=== PATIENT | female | born 1975 | race Caucasian/White ===

== ENCOUNTER 2016-10-14 16:22 | Emergency (ER) | payer BC ==
[~2016-10-14] VITALS: Ht 157.5 cm; Wt 49.9 kg
[2016-10-14 16:37] VITALS: BP_SYST 124
--- NOTE | 2016-10-14 16:49 | NUR ---
Patient to ER bed 7 to gown for evaluation. Side rails up. Report given to Antonella WHITTEN.
--- NOTE | 2016-10-14 16:52 | NUR ---
Patient was brought in by . Patient is A& O x 4. Patient reports that she has been having dizziness after waking at 2 am this morning with nausea but denies any vomiting. Denies photophobia. Patient presents with nice pack on head in wheelchair. Denies any pain but reports "spinning". No other complaints/injuries per patient or as noted. Will continue monitor.
--- NOTE | 2016-10-14 16:59 | NUR ---
Dr. Roman at bedside.
[2016-10-14] MEDS ORDERED: PROMETHAZINE HCL 25 MG/ML AMP IVP ONE (17:00)
[2016-10-14] MEDS ORDERED: NACL 0.9% 1,000 ML IV ONE (17:15)
[2016-10-14 17:20] LABS: BASOPHILS % (AUTO) 0.3 % (0.0-2.0); EOSINOPHILS % (AUTO) 0.1 % (0.0-4.0); HEMATOCRIT 41.5 % (36-48); LYMPHOCYTES # (AUTO) 1.5 K/uL (1.0-5.5); LYMPHOCYTES % (AUTO) 16.4 % (20.5-51.5); MEAN CORPUSCULAR HEMOGLOBIN 31 pg (27-31); MEAN CORPUSCULAR HGB CONC 34 % (32-36); MEAN CORPUSCULAR VOLUME 93 fL (79.0-98.0); MONOCYTES # (AUTO) 0.4 K/uL (0.0-1.0); MONOCYTES % (AUTO) 4.9 % (1.7-9.3); NEUTROPHILS # (AUTO) 7.1 K/uL (1.8-7.7); NEUTROPHILS % (AUTO) 78.3 % (40.0-70.0); PLATELET COUNT (AUTO) 329 K/uL (130-430); RED BLOOD CELL COUNT(AUTO) 4.48 MIL/uL (4.2-6.2); RED CELL DISTRIBUTION WIDTH 11.5 % (9.0-15.0)
--- NOTE | 2016-10-14 17:31 | NUR ---
Phenergan 12.5 mg administered. Medication did not scan. Patient's Name and Date of verified as well as allergies. Patient tolerated well.
[2016-10-14 17:36] LABS: CALCIUM 9.4 mg/dL (8.4-11.0); CREATININE 0.7 mg/dL (0.55-1.30); POTASSIUM 3.6 mmol/L (3.5-5.1)
[2016-10-14 17:41] LABS: ALBUMIN 4.8 g/dL (3.4-4.8); TOTAL BILIRUBIN 0.7 mg/dL (0.0-1.0); TOTAL PROTEIN, SERUM 8.3 g/dL (6.4-8.3)
[2016-10-14] MEDS ORDERED: MECLIZINE HCL 25 MG TABLET (ANITVERT) PO ONE (18:45)
--- NOTE | 2016-10-14 18:54 | NUR ---
Patient resting quietly. No acute distress noted. Vital signs within normal range.
[2016-10-14 20:03] VITALS: BP_SYST 124
--- NOTE | 2016-10-14 20:03 | NUR ---
Patient given written and verbal discharge instructions and verbalizes understanding. ER MD discussed with patient the results and treatment provided. Patient in stable condition. ID arm band removed. IV catheter removed intact and dressing applied, no active bleeding. Rx of Antivert given. Patient educated on pain management and to follow up with PMD. Pain Scale 0/10. Opportunity for questions provided and answered.
== END 2016-10-14 20:03 | disposition home or self-care (01) ==
LOC: SED 16:22
DX: O26.891 Other specified pregnancy related conditions, first trimester (principal); H81.10 Benign paroxysmal vertigo, unspecified ear; Z88.1 Allergy status to other antibiotic agents; Z88.8 Allergy status to other drugs, medicaments and biological substances; Z3A.01 Less than 8 weeks gestation of pregnancy
CPT/HCPCS: 36415; 80053; 85025; 96361; 96374; 99284; J2550; J7030; J8597

== ENCOUNTER 2017-02-06 16:40 | Observation (INO) | payer BC ==
[~2017-02-06] VITALS: Ht 157.5 cm; Wt 58.1 kg
[2017-02-06] MEDS ORDERED: D5LR 1,000 ML IV SCH (18:42)
[2017-02-06] MEDS ORDERED: ONDANSETRON HCL 4 MG/2 ML VIAL IVP PRN (18:45)
[2017-02-06] MEDS ORDERED: ONDANSETRON HCL 4 MG/2 ML VIAL ONE (19:03)
== END 2017-02-06 20:40 | disposition home or self-care (01) ==
LOC: SPU 16:40
PROVIDERS: ADMIT Specialist; ATTEND Specialist
DX: O21.2 Late vomiting of pregnancy (principal); Z3A.21 21 weeks gestation of pregnancy
CPT/HCPCS: 81002; G0378; J2405; J7120